=== PATIENT | female | born 1950 | race Caucasian/White ===

== ENCOUNTER → 2016-12-28 | Outpatient (CLI) | payer OTHER ==
[~2016-12-28] MED LIST: FURO10VI37 PO; GABA100C8 PO; HYDR-3144 PO; METO25TA35 PO; [UNRECOGNIZED DRUG - OTHER] PO
== END | disposition home or self-care (01) ==
LOC: ROC 13:49
PROVIDERS: ATTEND Radiology Radiation Oncology
DX: C51.0 Malignant neoplasm of labium majus (principal); Z87.891 Personal history of nicotine dependence
CPT/HCPCS: 99213; G0463

== ENCOUNTER → 2017-01-25 | Outpatient (CLI) | payer OTHER | END | disposition home or self-care (01) | LOC: WOUND 10:33 | PROVIDERS: ATTEND Internal Medicine | DX: L89.42 Pressure ulcer of contiguous site of back, buttock and hip, stage 2 (principal); I89.0 Lymphedema, not elsewhere classified; G47.30 Sleep apnea, unspecified; M17.12 Unilateral primary osteoarthritis, left knee; Z87.891 Personal history of nicotine dependence | CPT/HCPCS: 97597; G0463; WOU0463 ==

== ENCOUNTER → 2017-02-01 | Outpatient (CLI) | payer OTHER | END | disposition home or self-care (01) | LOC: WOUND 11:15 | PROVIDERS: ATTEND Internal Medicine | DX: L89.42 Pressure ulcer of contiguous site of back, buttock and hip, stage 2 (principal); I89.0 Lymphedema, not elsewhere classified; G47.30 Sleep apnea, unspecified; M17.0 Bilateral primary osteoarthritis of knee; Z87.891 Personal history of nicotine dependence | CPT/HCPCS: 97597 ==

== ENCOUNTER → 2017-02-08 | Outpatient (CLI) | payer OTHER | END | disposition home or self-care (01) | LOC: WOUND 10:45 | PROVIDERS: ATTEND Internal Medicine | DX: L89.42 Pressure ulcer of contiguous site of back, buttock and hip, stage 2 (principal); I89.0 Lymphedema, not elsewhere classified; G47.30 Sleep apnea, unspecified; M17.12 Unilateral primary osteoarthritis, left knee; Z87.891 Personal history of nicotine dependence | CPT/HCPCS: 97597 ==

== ENCOUNTER → 2017-02-15 | Outpatient (CLI) | payer OTHER ==
[~2017-02-15] MED LIST changes: +GABA-826 PO; -GABA100C8 PO
== END | disposition home or self-care (01) ==
LOC: WOUND 13:00
PROVIDERS: ATTEND Internal Medicine
DX: L89.42 Pressure ulcer of contiguous site of back, buttock and hip, stage 2 (principal); I89.0 Lymphedema, not elsewhere classified; G47.30 Sleep apnea, unspecified; M17.0 Bilateral primary osteoarthritis of knee; Z87.891 Personal history of nicotine dependence
CPT/HCPCS: 97597

== ENCOUNTER → 2017-02-22 | Outpatient (CLI) | payer OTHER | END | disposition home or self-care (01) | LOC: WOUND 12:45 | PROVIDERS: ATTEND Internal Medicine | DX: L89.42 Pressure ulcer of contiguous site of back, buttock and hip, stage 2 (principal); I89.0 Lymphedema, not elsewhere classified; G47.30 Sleep apnea, unspecified; M17.0 Bilateral primary osteoarthritis of knee; Z85.44 Personal history of malignant neoplasm of other female genital organs; Z87.891 Personal history of nicotine dependence | CPT/HCPCS: 97597 ==

== ENCOUNTER → 2017-03-01 | Outpatient (CLI) | payer OTHER | END | disposition home or self-care (01) | LOC: WOUND 12:45 | PROVIDERS: ATTEND Internal Medicine | DX: L89.43 Pressure ulcer of contiguous site of back, buttock and hip, stage 3 (principal); I89.0 Lymphedema, not elsewhere classified; M17.12 Unilateral primary osteoarthritis, left knee; E66.01 Morbid (severe) obesity due to excess calories; G47.33 Obstructive sleep apnea (adult) (pediatric); Z68.43 Body mass index [BMI] 50.0-59.9, adult; Z85.44 Personal history of malignant neoplasm of other female genital organs; Z87.891 Personal history of nicotine dependence | CPT/HCPCS: 97597 ==

== ENCOUNTER → 2017-03-15 | Outpatient (CLI) | payer OTHER | END | disposition home or self-care (01) | LOC: WOUND 13:45 | PROVIDERS: ATTEND Internal Medicine | DX: L89.153 Pressure ulcer of sacral region, stage 3 (principal); I89.0 Lymphedema, not elsewhere classified; G62.9 Polyneuropathy, unspecified; G47.33 Obstructive sleep apnea (adult) (pediatric); E66.01 Morbid (severe) obesity due to excess calories; M17.12 Unilateral primary osteoarthritis, left knee; Z87.891 Personal history of nicotine dependence; Z68.43 Body mass index [BMI] 50.0-59.9, adult; Z85.44 Personal history of malignant neoplasm of other female genital organs | CPT/HCPCS: 97597 ==

== ENCOUNTER → 2017-03-29 | Outpatient (CLI) | payer OTHER | END | disposition home or self-care (01) | LOC: WOUND 12:45 | PROVIDERS: ATTEND Internal Medicine | DX: L89.43 Pressure ulcer of contiguous site of back, buttock and hip, stage 3 (principal); I89.0 Lymphedema, not elsewhere classified; M17.12 Unilateral primary osteoarthritis, left knee; E66.01 Morbid (severe) obesity due to excess calories; Z68.43 Body mass index [BMI] 50.0-59.9, adult; G47.33 Obstructive sleep apnea (adult) (pediatric); Z87.891 Personal history of nicotine dependence; Z85.44 Personal history of malignant neoplasm of other female genital organs | CPT/HCPCS: 97597 ==

== ENCOUNTER → 2017-04-12 | Outpatient (CLI) | payer OTHER | END | disposition home or self-care (01) | LOC: WOUND 13:05 | PROVIDERS: ATTEND Internal Medicine | DX: L89.42 Pressure ulcer of contiguous site of back, buttock and hip, stage 2 (principal); I89.0 Lymphedema, not elsewhere classified; E66.01 Morbid (severe) obesity due to excess calories; G47.33 Obstructive sleep apnea (adult) (pediatric); Z85.44 Personal history of malignant neoplasm of other female genital organs; M17.12 Unilateral primary osteoarthritis, left knee; Z87.891 Personal history of nicotine dependence; Z68.43 Body mass index [BMI] 50.0-59.9, adult | CPT/HCPCS: G0463; WOU0463 ==

== ENCOUNTER → 2017-04-19 | Outpatient (CLI) | payer OTHER ==
[~2017-04-19] MED LIST changes: -HYDR-3144 PO; +HYDR-3245 PO
== END | disposition home or self-care (01) ==
LOC: WOUND 13:15
PROVIDERS: ATTEND Internal Medicine
DX: L89.43 Pressure ulcer of contiguous site of back, buttock and hip, stage 3 (principal); I89.0 Lymphedema, not elsewhere classified; M17.12 Unilateral primary osteoarthritis, left knee; E66.01 Morbid (severe) obesity due to excess calories; G47.33 Obstructive sleep apnea (adult) (pediatric); Z85.44 Personal history of malignant neoplasm of other female genital organs; Z87.891 Personal history of nicotine dependence; Z68.43 Body mass index [BMI] 50.0-59.9, adult
CPT/HCPCS: G0463; WOU0463

== ENCOUNTER → 2017-05-03 | Outpatient (CLI) | payer OTHER | END | disposition home or self-care (01) | LOC: WOUND 13:05 | PROVIDERS: ATTEND Internal Medicine | DX: L89.42 Pressure ulcer of contiguous site of back, buttock and hip, stage 2 (principal); I89.0 Lymphedema, not elsewhere classified; E66.01 Morbid (severe) obesity due to excess calories; M17.12 Unilateral primary osteoarthritis, left knee; G62.9 Polyneuropathy, unspecified; Z68.43 Body mass index [BMI] 50.0-59.9, adult; Z85.44 Personal history of malignant neoplasm of other female genital organs; Z87.891 Personal history of nicotine dependence | CPT/HCPCS: G0463; WOU0463 ==

== ENCOUNTER 2019-01-13 14:39 | Emergency (ER) | payer OTHER ==
[2019-01-13 15:51] VITALS: BP 139/85
--- NOTE | 2019-01-13 15:51 | NUR ---
PT SLEEPING IN [facility], AWAITING RAD RESULTS. PT ON MONITOR, VSS, CALL LIGHT WITHIN REACH
--- NOTE | 2019-01-13 16:41 | NUR ---
MD AT BEDSIDE TO DISCUSS POC
--- NOTE | 2019-01-13 17:45 | NUR ---
[facility] ARRANGED FOR [facility] TO TRANSPORT PT BACK HOME AT 181
== END 2019-01-13 18:37 | disposition home or self-care (01) ==
LOC: ED 16:03
DX: G89.11 Acute pain due to trauma (principal); M25.562 Pain in left knee; M25.511 Pain in right shoulder; E66.01 Morbid (severe) obesity due to excess calories; Z68.41 Body mass index [BMI] 40.0-44.9, adult; I10 Essential (primary) hypertension; M19.90 Unspecified osteoarthritis, unspecified site; Z87.891 Personal history of nicotine dependence; V03.10XA Pedestrian on foot injured in collision with car, pick-up truck or van in traffic accident, initial encounter; Y93.89 Activity, other specified; Y92.89 Other specified places as the place of occurrence of the external cause; Y99.8 Other external cause status
CPT/HCPCS: 99283

== ENCOUNTER 2019-12-13 22:24 | Observation (INO) | payer MEDICARE ==
[~2019-12-13] VITALS: Ht 167.6 cm; Wt 123.9 kg
[~2019-12-13 22:24] MED LIST changes: +AMOX1TAB12 PO; +APIX5TAB PO; +DOXY100T PO; +FURO20TA3 PO; +METO-99 PO; +METO25TA91 PO; +NYST15PO2 TP; +PANT40TA5 PO; +POTA10TA31 PO
[2019-12-13] MEDS ORDERED: ONDANSETRON 2MG/ML, 2ML ONE (22:47)
[2019-12-13] MEDS ORDERED: MORPHINE SULFATE 4 MG/ML, 1ML ONE ×2 (22:48→23:12)
[2019-12-13] MEDS: MORPHINE SULFATE 4 MG/ML, 1ML IVPush PRN ×2 (22:53→23:15)
[2019-12-13] MEDS ORDERED: ONDANSETRON 2MG/ML, 2ML IVPush ONE (23:00)
[2019-12-13 23:06] LABS: BASOPHILS # (AUTO) 0.01 x10^3/uL (0-0.1); BASOPHILS % (AUTO) 0 % (0-1); EOSINOPHILS # (AUTO) 0.05 x10^3/uL (0-0.4); EOSINOPHILS % (AUTO) 1 % (1-7); LYMPHOCYTES # (AUTO) 0.74 x10^3/uL (1-3.4); LYMPHOCYTES % (AUTO) 7 % (22-44); MD NO; MEAN CORPUSCULAR HEMOGLOBIN 29.9 pg (27.0-34.8); MEAN CORPUSCULAR HGB CONC 32.6 g/dL (32.4-35.8); MEAN CORPUSCULAR VOLUME 91.7 fL (80-100); MEAN PLATELET VOLUME 7.1 fL (7.4-10.4); MONOCYTES % (AUTO) 4 % (2-9); NEUTROPHILS # (AUTO) 10.08 x10^3/uL (1.8-6.8); NEUTROPHILS % (AUTO) 89 % (42-75); PLATELET COUNT 354 x10^3/uL (130-400); RED CELL DISTRIBUTION WIDTH 15.7 % (9.6-15.2)
[2019-12-13 23:07] LABS: ALANINE AMINOTRANSFERASE 7 U/L (12-78); ALBUMIN 2.7 g/dL (3.4-5.0); ANION GAP 7 mmol/L (5-15); CALCIUM 9.1 mg/dL (8.5-10.1); CHLORIDE 101 mmol/L (98-107); CREATININE 1.13 mg/dL (0.55-1.02)
[2019-12-13 23:11] LABS: ALKALINE PHOSPHATASE 72 U/L (45-117); BILIRUBIN,TOTAL 0.5 mg/dL (0.2-1.0); TROPONIN I < 0.015 ng/mL (0.000-0.045)
[2019-12-13] MEDS ORDERED: OMNIPAQUE 350 MG/ML, 100ML BOTTLE ONE (23:40)
[2019-12-14] LABS: CULTURE INDICATED? YES; MICROSCOPIC INDICATED
[2019-12-14] MEDS ORDERED: KETOROLAC 30 MG/1 ML IVPush ONE
[2019-12-14] MEDS ORDERED: KETOROLAC 30 MG/1 ML ONE (00:01)
[2019-12-14] MEDS ORDERED: SODIUM CHLORIDE 0.9% 1,000 ML IV ONE (00:21)
[2019-12-14] MEDS ORDERED: CEFTRIAXONE PMX 1GM/50ML 50 ML IV ONE (00:30)
[2019-12-14] MEDS ORDERED: ONDANSETRON 2MG/ML, 2ML IVPush PRN ×2 (00:30→01:00)
[2019-12-14] MEDS ORDERED: CEFTRIAXONE PMX 1GM/50ML 50 ML ONE (00:54)
[2019-12-14] MEDS ORDERED: HYDROmorphone 1 MG/ML, 1ML INJ ONE (00:54)
[2019-12-14] MEDS ORDERED: HYDROcodone/APAP 5/325 TABLET PO PRN (01:00)
[2019-12-14] MEDS ORDERED: POLYETHYLENE GLYCOL 17 GM PACKET PO PRN (01:00)
[2019-12-14] MEDS ORDERED: BISACODYL 10 MG SUPP PR PRN (01:00)
[2019-12-14] MEDS ORDERED: ACETAMINOPHEN 325 MG TABLET PO PRN (01:00)
[2019-12-14] MEDS ORDERED: DOCUSATE 100 MG CAPSULE PO PRN (01:00)
[2019-12-14] MEDS ORDERED: morphine SULFATE 10 MG/ML, 1ML IVPush PRN (01:00)
[2019-12-14] MEDS ORDERED: HEPARIN 5,000 UNITS/ML, 1ML SQ SCH (01:00)
[2019-12-14] MEDS: AMPICILLIN/SULBACTAM 3 GM in SODIUM CHLORIDE 0.9% 100 ML IV SCH ×3 (01:04→16:51)
[2019-12-14] MEDS: HYDROmorphone 1 MG/ML, 1ML INJ IVPush PRN ×2 (01:05→01:10)
--- NOTE | 2019-12-14 01:07 | NUR ---
Report given to Sherman WHITLOCK
--- NOTE | 2019-12-14 01:11 | NUR ---
TASK RN: PT RESTING IN ROOM. VSS. PT MEDICATED PER NOV. PT DECLINING PAIN MEDICATION AT THIS TIME. NO NEEDS EXPRESSED. CALL LIGHT WITHIN REACH.
[2019-12-14 01:37] VITALS: BP 108/65
[2019-12-14] MEDS: SODIUM CHLORIDE 0.9% 1,000 ML IV SCH ×2 (02:05→14:21)
[2019-12-14 06:36] VITALS: BP 133/73
[2019-12-14] MEDS: POTASSIUM CHLORIDE 10 MEQ TABLET.ER PO SCH ×2 (08:17→20:03)
[2019-12-14] MEDS: METOPROLOL TARTRATE 100 MG TAB PO SCH ×2 (08:18→20:03)
[2019-12-14] MEDS: PANTOPRAZOLE 40MG TABLET PO SCH (08:18)
[2019-12-14] MEDS: NYSTATIN TOPICAL POWDER 15GM TP SCH ×2 (08:20→20:04)
[2019-12-14] MEDS ORDERED: FUROSEMIDE 40 MG TABLET PO SCH (09:00)
[2019-12-14] MEDS ORDERED: APIXABAN 5 MG TABLET PO SCH (09:00)
[2019-12-14] MEDS: HEPARIN 5,000 UNITS/ML, 1ML SQ SCH ×3 (09:00→20:27)
[2019-12-14 14:00] VITALS: BP 98/65
[2019-12-14 18:56] VITALS: BP 116/69
[2019-12-15] MEDS: AMPICILLIN/SULBACTAM 3 GM in SODIUM CHLORIDE 0.9% 100 ML IV SCH ×2 (00:10→08:26)
[2019-12-15 01:15] VITALS: BP 107/54
[2019-12-15 05:26] LABS: BASOPHILS # (AUTO) 0.04 x10^3/uL (0-0.1); BASOPHILS % (AUTO) 1 % (0-1); EOSINOPHILS # (AUTO) 0.13 x10^3/uL (0-0.4); EOSINOPHILS % (AUTO) 2 % (1-7); LYMPHOCYTES # (AUTO) 1.05 x10^3/uL (1-3.4); LYMPHOCYTES % (AUTO) 15 % (22-44); MD NO; MEAN CORPUSCULAR HEMOGLOBIN 29.7 pg (27.0-34.8); MEAN CORPUSCULAR HGB CONC 32.3 g/dL (32.4-35.8); MEAN PLATELET VOLUME 7.4 fL (7.4-10.4); MONOCYTES # (AUTO) 0.52 x10^3/uL (0.2-0.8); MONOCYTES % (AUTO) 7 % (2-9); NEUTROPHILS # (AUTO) 5.34 x10^3/uL (1.8-6.8); NEUTROPHILS % (AUTO) 75 % (42-75); PLATELET COUNT 306 x10^3/uL (130-400); RED BLOOD COUNT 3.79 x10^6/uL (3.82-5.3); RED CELL DISTRIBUTION WIDTH 16.2 % (9.6-15.2)
[2019-12-15 05:31] LABS: ALANINE AMINOTRANSFERASE 16 U/L (12-78); ALBUMIN 2.2 g/dL (3.4-5.0); ANION GAP 5 mmol/L (5-15); CALCIUM 8.4 mg/dL (8.5-10.1); CHLORIDE 103 mmol/L (98-107)
[2019-12-15 05:42] LABS: ALKALINE PHOSPHATASE 69 U/L (45-117); BILIRUBIN,TOTAL 0.3 mg/dL (0.2-1.0); CREATININE 0.85 mg/dL (0.55-1.02); TOTAL PROTEIN 6.4 g/dL (6.4-8.2)
[2019-12-15] MEDS: HEPARIN 5,000 UNITS/ML, 1ML SQ SCH (07:18)
[2019-12-15 08:21] VITALS: BP 134/75
[2019-12-15] MEDS: METOPROLOL TARTRATE 100 MG TAB PO SCH (08:25)
[2019-12-15] MEDS: PANTOPRAZOLE 40MG TABLET PO SCH (08:26)
[2019-12-15] MEDS: POTASSIUM CHLORIDE 10 MEQ TABLET.ER PO SCH (08:26)
[2019-12-15] MEDS: NYSTATIN TOPICAL POWDER 15GM TP SCH (08:26)
[2019-12-15 13:35] VITALS: BP 125/75
== END 2019-12-15 14:00 ==
LOC: ED 23:03 → INTOOBSV 12-14 00:26 → EDIP 12-14 00:26 → 3N 12-14 01:20
PROVIDERS: ADMIT Family Medicine; ATTEND Internal Medicine Infectious Disease
DX: N13.6 Pyonephrosis (principal); F11.20 Opioid dependence, uncomplicated; D68.69 Other thrombophilia; E66.01 Morbid (severe) obesity due to excess calories; K62.7 Radiation proctitis; G62.9 Polyneuropathy, unspecified; M75.51 Bursitis of right shoulder; I10 Essential (primary) hypertension; I48.91 Unspecified atrial fibrillation; M17.12 Unilateral primary osteoarthritis, left knee; Z79.01 Long term (current) use of anticoagulants; Z85.44 Personal history of malignant neoplasm of other female genital organs; Z87.891 Personal history of nicotine dependence; Y84.2 Radiological procedure and radiotherapy as the cause of abnormal reaction of the patient, or of later complication, without mention of misadventure at the time of the procedure
CPT/HCPCS: 36415; 71045; 74177; 80053; 81001; 83690; 83735; 84100; 84443; 84484; 85025; 87040; 87077; 87081; 87086; 87186; 93005; 96365; 96366; 96368; 96372; 96375; 97163; 99285; G0378; J0295; J0696; J1644; J1885; J2270; J2405; J7030; Q9967; 96374; J1170